=== PATIENT | female | born 1955 | race Caucasian/White ===

== ENCOUNTER 2019-06-20 12:43 | Inpatient (IN) | payer OTHER ==
[~2019-06-20] VITALS: Ht 167.6 cm; Wt 71.2 kg
--- NOTE | 2019-06-20 12:43 | NUR ---
PATIENT BIBA TO BED 6 AT THIS TIME.
--- NOTE | 2019-06-20 12:50 | NUR ---
PT [facility] FOR FURTHER EVALUATION OF ALOC, NAUSEA AND VOMITING. PT ALERT TO NAME AND EVENT AT THIS TIME; PER EMS THIS IS PT'S BASELINE. DIALYSIS T, TH, SAT. AV SHUNT TO LT ARM. ALLERGIES: AMLODIPINE, PENICILLINS MED HX: CVA, HTN, HDL, DM II, ESRD ON HD, OSTEOMYELITIS (LT ANKLE/FOOT), NEUROPATHY
[2019-06-20 12:51] VITALS: BP 178/53
--- NOTE | 2019-06-20 13:07 | NUR ---
Oxygen applied at 2 L per minute via NC. 02 saturation 98% by pulse oximetry.
--- NOTE | 2019-06-20 13:09 | NUR ---
INQUIRED WITH MD FOR POSSIBLE CT HEAD HX CVA, ESRD DIALYSIS, DM
[2019-06-20] MEDS ORDERED: VITA1TAB44 PO (13:18)
[2019-06-20] MEDS ORDERED: DOCU-300 PO (13:18)
[2019-06-20] MEDS ORDERED: ATOR40TA PO (13:18)
[2019-06-20] MEDS ORDERED: HEPA500056 (13:18)
[2019-06-20] MEDS ORDERED: LACT10SO1 PO (13:18)
[2019-06-20] MEDS ORDERED: SEVE800T6 PO (13:18)
[2019-06-20] MEDS ORDERED: BISA-213 RC (13:18)
[2019-06-20] MEDS ORDERED: ASPI-1718 PO (13:18)
[2019-06-20] MEDS ORDERED: CARV12.5 PO (13:18)
[2019-06-20] MEDS ORDERED: LOSA100T51 PO (13:18)
[2019-06-20] MEDS ORDERED: [UNRECOGNIZED DRUG - CODE] PO (13:18)
[2019-06-20] MEDS ORDERED: GABA100C PO (13:18)
[2019-06-20] MEDS ORDERED: SLIDE SUBQ (13:23)
[2019-06-20] MEDS ORDERED: INSU10SU2 SC (13:23)
--- NOTE | 2019-06-20 13:26 | NUR ---
CXR AT BEDSIDE
--- NOTE | 2019-06-20 13:26 | NUR ---
CT NOTIFIED OF PT
--- NOTE | 2019-06-20 13:48 | NUR ---
EKG BEING PERFORMED BY NAI SANCHEZ
[2019-06-20 14:06] LABS: BASOPHILS # (AUTO) 0.1 K/uL (0.00-0.22); HEMATOCRIT 30.7 % (36-48); HEMOGLOBIN 9.5 g/dL (12.0-16.0); NEUTROPHILS # (AUTO) 12.8 K/uL (1.8-7.7)
[2019-06-20 14:13] LABS: BASOPHILS % (AUTO) 0.5 % (0.0-2.0); EOSINOPHILS % (AUTO) 0.2 % (0.0-4.0); LYMPHOCYTES # (AUTO) 1.7 K/uL (2.5-16.5); LYMPHOCYTES % (AUTO) 10.7 % (20.5-51.1); MEAN CORPUSCULAR HEMOGLOBIN 25 pg (27-31); MEAN CORPUSCULAR HGB CONC 31 g/dL (33-37); MEAN CORPUSCULAR VOLUME 78.8 fL (80-94); MONOCYTES # (AUTO) 1.5 K/uL (0.8-1.0); MONOCYTES % (AUTO) 9.3 % (1.7-9.3); NEUTROPHILS % (AUTO) 79.3 % (42.2-75.2); PLATELET COUNT (AUTO) 384 K/uL (140-450); RED CELL DISTRIBUTION WIDTH 17.1 % (11.6-13.7); WHITE BLOOD COUNT (AUTO) 16.2 K/uL (4.8-10.8)
--- NOTE | 2019-06-20 14:15 | NUR ---
# 14 FR Urinary catheter inserted utilizing sterile technique. Immediate return of 10 ml of clear yellow urine noted. Urine sample collected. Pt tolerated procedure well.
[2019-06-20 14:22] LABS: ALBUMIN 2.8 g/dL (3.4-5.0); ANION GAP 6.3 (8-16); CARBON DIOXIDE 38.7 mmol/L (21-32); CREATININE 3.4 mg/dL (0.6-1.3); TOTAL BILIRUBIN 1.3 mg/dL (0.0-1.0)
--- NOTE | 2019-06-20 15:17 | NUR ---
pt taken to ct scan via rebekah
[2019-06-20] MEDS ORDERED: DOCUSATE SODIUM 100 MG GELCAP PO PRN (16:30)
[2019-06-20] MEDS ORDERED: ACETAMINOPHEN 325 MG TAB PO PRN (16:30)
[2019-06-20] MEDS ORDERED: HYDROcodone/APAP 5/325 MG 1 TAB TAB PO PRN (16:30)
--- NOTE | 2019-06-20 16:34 | NUR ---
Herlinda crowley in ED - 06/20/19 at 1634 by DENYS Patient resting comfortably in bed. Vital Signs within normal limits. Respirations even and unlabored.
--- NOTE | 2019-06-20 16:34 | NUR ---
Patient resting comfortably in bed. Vital Signs within normal limits. O2 sat 98% in 2L via NC.
[2019-06-20 17:24] LABS: MAGNESIUM 2.1 mg/dL (1.8-2.4); PHOSPHORUS 1.9 mg/dL (2.5-4.9); THYROID STIMULATING HORMONE 12.04 uIU/mL (0.34-3.74)
--- NOTE | 2019-06-20 17:30 | NUR ---
PT ARRIVED ON THE UNIT WITH 2 ER NURSES. PT IS ALERT AND ORIENTED. [place] [facility] [place]/C [place]OC, N/V, AND ABD PAIN IN RUQ. DENIES PAIN OR NAUSEA AT THIS TIME. HX OF CVA, R SIDED WEAKNESS, DM, HTN, NEUROPATHY,AND HYPERLIPIDEMIA. PT HAS A BIG TOE ON L FOOT AMPUTATED. HAS A DRESSING ON THE L FOOT. IT WAS REMOVED AND THE HEEL WAS BLACK, UNSTAGEABLE WOUND. PT ALSO HAS A WOUND ON R HAND. PER PT, IT WAS FROM AN IV INSERTION. TOOK PICTURES. MRSA DONE. GOT PT SETTLED INTO BED AND WILL ENDORSE PT TO THE SHODDY MILL WORKER NURSE FOR ADMISSION. V/S STABLE, ON 2 L NC. IV ON R FA 20G SL.
[2019-06-20] MEDS ORDERED: DEXTROSE 50% 50 ML SYR IVP PRN (17:35)
[2019-06-20 17:42] LABS: PROTHROMBIN TIME 11.1 secs (10.8-13.4)
--- NOTE | 2019-06-20 17:49 | NUR ---
APatient admitted to care of Dr. Medrano . Admited to telemetry floor room 105b. Belongings list completed. Report to INDRA Reyes. Pt in stable condition; transfer of care at this time.
--- NOTE | 2019-06-20 18:45 | NUR ---
C/O NAUSEA. GAVE PT A VOMIT BAG. WILL CHECK ORDERS.
[2019-06-20] MEDS: ONDANSETRON 4 MG/2 ML VIAL IM/IVP PRN (19:09)
[2019-06-20] MEDS: NACL 0.9% 1,000 ML IV SCH (19:09)
--- NOTE | 2019-06-20 19:23 | NUR ---
ENDORSED PT TO THE RN LVN NURSE AT BEDSIDE FOR CONTINUITY OF CARE. PT IS IN STABLE CONDITION.
--- NOTE | 2019-06-20 19:24 | NUR ---
RECEIVED BEDSIDE REPORT FROM DAY SHIFT NURSE ANDREW RN, PT STABLE, NO DISTRESS NOTED, IV TO R FA20G PATENT, INTACT, INFUSING WELL, PT ON 1LPM O2 VIA NC, NO SOB NOTED, INITIAL ASSESSMENT DONE, ALL SAFETY PRECAUTION MET, CALL LIGHT WITHIN REACH, WILL CONTINUE TO MONITOR.
[2019-06-20 20:00] VITALS: BP 147/43
--- NOTE | 2019-06-20 20:12 | NUR ---
TRIED TO OBTAIN CONSENT FROM PT FOR I&D OF THE FOOT WOUND WITH DR. LORENZO AT BEDSIDE, PT WAS ABLE TO ANSWER QUESTIONS AND UNDERSTAND PROCEDURE, BUT WHEN ASKED REGARDING THE CONSENT, PT STATED THAT HIS SON IS THE ONE THAT SIGNS CONSENT. WILL TRY TO CONTACT SON AGAIN REGARDING CONSENT, PT RESTING, NO DISTRESS NOTED, CALL LIGHT WITHIN REACH.
[2019-06-20] MEDS ORDERED: INSULIN LANTUS 100 UNITS/ML 10 ML VIAL SUBQ SCH (21:00)
[2019-06-20] MEDS: GABAPENTIN 100 MG CAP PO SCH (21:09)
[2019-06-20] MEDS: BISACODYL 10 MG SUPP RC SCH (21:09)
[2019-06-20] MEDS: DOCUSATE SODIUM 100 MG GELCAP PO SCH (21:09)
[2019-06-20] MEDS: ATORVASTATIN 20 MG TAB PO SCH (21:09)
[2019-06-20] MEDS: CARVEDILOL 12.5 MG TAB PO SCH (21:09)
[2019-06-20] MEDS: BLOOD GLUCOSE MONITORING 1 DEV DEV FS SCH (21:22)
[2019-06-21] VITALS: BP 137/31
--- NOTE | 2019-06-21 00:14 | NUR ---
CHECKED ON PT, PT SLEEPING, NO DISTRESS NOTED, ATTEMPT TO STRAIGHT CATH PT FOR URINALYSIS, PT TOO DROWSY, WAS UNABLE TO COMPREHEND PROCEDURE, WILL TRY AGAIN WHEN PT IS MORE AWAKE.
[2019-06-21 04:00] VITALS: BP 148/48
--- NOTE | 2019-06-21 04:00 | NUR ---
CHECKED ON PT, V/S TAKEN, WITHIN PT BASELINE, STRAIT CATH PERFORMED, PT TOLERATED WELL, OBTAINED URINE AND SENT TO LAB, PT RESTING, NO DISTRESS NOTED, CALL LIGHT WITHIN REACH, WILL CONTINUE TO MONITOR.
[2019-06-21] MEDS: BLOOD GLUCOSE MONITORING 1 DEV DEV FS SCH ×4 (06:02→20:21)
--- NOTE | 2019-06-21 06:05 | NUR ---
CHECKED PT BLOOD SUGAR, 81, PT SLEEPING, NO DISTRESS NOTED, CALL LIGHT WITHIN REACH, WILL CONTINUE TO MONITOR.
[2019-06-21] MEDS: PANTOPRAZOLE 40 MG TABEC PO SCH (06:37)
--- NOTE | 2019-06-21 06:37 | NUR ---
ATTEMPTED TO ADMINISTER MEDICATION PROTONIX TO PT, PT WOULD NOT WAKE UP, PT REACTED TO NAME BUT DOESN'T WANT TO OPEN HER EYES AND MOUTH. PT RESTING, NO DISTRESS NOTED, CALL LIGHT WITHIN REACH, WILL CONTINUE TO MONITOR. Addendum: 06/21/19 at 0639 by Racheal Ozuna RN DR HOPKINS NOTIFIED, STATED UNDERSTANDING.
--- NOTE | 2019-06-21 07:23 | NUR ---
ENDORSED PT TO DAY SHIFT NURSE LOUISA RN, PT STABLE, NO DISTRESS NOTED, CALL LIGHT WITHIN REACH.
--- NOTE | 2019-06-21 07:24 | NUR ---
RECEIVED REPORT FROM CLASSIFICATION CASE MANAGER NURSE. PATIENT LYING DOWN IN BED SLEEPING, AROUSABLE BY VOICE. NO DISTRESS NOTED. DENIES ANY PAIN. AAOX3, CALM, COOPERATIVE, SKIN COLOR APPROPRIATE TO ETHNICITY, WARM TO TOUCH. HAS LEFT GREAT TO AMPUTATION, AND LEFT HEEL WOUND, LOOKS BLACK. LEFT UPPER ARM AV SHUNT NOTED, PATENT. IV SITE INTACT, PATENT, AND INFUSING IVF PER MD ORDERS. HAS RIGHT SIDED WEAKNESS. RESPIRATIONS EVEN, UNLABORED, ON O2 1L/MIN VIA NC. REVIEWED PLAN OF CARE WITH PATIENT. PATIENT VERBALIZED UNDERSTANDING. SAFETY MEASURES IN PLACE, CALL LIGHT WITHIN REACH. WILL CONTINUE TO MONITOR.
[2019-06-21 08:00] VITALS: BP 155/44
[2019-06-21 08:06] LABS: APPEARANCE,URINE CLEAR (CLEAR); BILIRUBIN,URINE NEGATIVE (NEGATIVE); BLOOD, URINE NEGATIVE (NEGATIVE); COLOR,URINE YELLOW (YELLOW); LEUKOCYTE ESTERASE ,URINE NEGATIVE (NEGATIVE); NITRITE, URINE NEGATIVE (NEGATIVE); PH,URINE >=9.0 (5.0-9.0); UGLUCOSE NEGATIVE (NEGATIVE)
--- NOTE | 2019-06-21 08:15 | NUR ---
PATIENT HAS BEEN SCREENED AND CATEGORIZED MODERATE NUTRITION RISK. PATIENT WILL BE SEEN WITHIN 3-5 DAYS OF ADMISSION. 06/23/19-06/25/[address]
[2019-06-21 08:25] LABS: RBC,URINE 0-5 /HPF (0-5)
[2019-06-21] MEDS: BISACODYL 10 MG SUPP RC SCH ×2 (09:00→21:00)
[2019-06-21] MEDS: CARVEDILOL 12.5 MG TAB PO SCH ×3 (09:00→21:44)
[2019-06-21] MEDS: LOSARTAN 50 MG TAB PO SCH ×2 (09:00→15:37)
[2019-06-21] MEDS: VIT-B COMP/VIT-C/FOLIC ACID 1 TAB PO SCH (09:29)
[2019-06-21] MEDS: ASPIRIN 81 MG TAB.CHEW PO SCH (09:29)
[2019-06-21] MEDS: DOCUSATE SODIUM 100 MG GELCAP PO SCH ×2 (09:30→21:43)
[2019-06-21] MEDS: SEVELAMER CARBONATE 800 MG TAB PO SCH ×3 (09:30→16:46)
--- NOTE | 2019-06-21 09:47 | NUR ---
ASSISTED PRODUCE INSPECTOR IN CLEANING PATIENT. SCHEDULED MEDICATIONS DUE GIVEN. WILL CONTINUE TO MONITOR. BP MEDS NOT GIVEN DUE TO SCHEDULED HEMODIALYSIS TODAY.
[2019-06-21 11:36] LABS: BASOPHILS # (AUTO) 0.1 K/uL (0.00-0.22); BASOPHILS % (AUTO) 0.8 % (0.0-2.0); EOSINOPHILS # (AUTO) 0.2 K/uL (0-0.4); EOSINOPHILS % (AUTO) 1.3 % (0.0-4.0); HEMATOCRIT 29.4 % (36-48); LYMPHOCYTES # (AUTO) 1.6 K/uL (2.5-16.5); LYMPHOCYTES % (AUTO) 14.5 % (20.5-51.1); MEAN CORPUSCULAR HEMOGLOBIN 25 pg (27-31); MEAN CORPUSCULAR HGB CONC 31 g/dL (33-37); MEAN CORPUSCULAR VOLUME 79.7 fL (80-94); MONOCYTES % (AUTO) 9.2 % (1.7-9.3); NEUTROPHILS # (AUTO) 8.3 K/uL (1.8-7.7); NEUTROPHILS % (AUTO) 74.2 % (42.2-75.2); PLATELET COUNT (AUTO) 348 K/uL (140-450); RED BLOOD CELL COUNT(AUTO) 3.69 MIL/uL (4.20-5.40); WHITE BLOOD COUNT (AUTO) 11.2 K/uL (4.8-10.8)
[2019-06-21 12:00] VITALS: BP 150/48
[2019-06-21 12:11] LABS: ANION GAP 8.6 (8-16); CARBON DIOXIDE 37.1 mmol/L (21-32); POTASSIUM 4.7 mmol/L (3.5-5.1)
[2019-06-21 12:15] LABS: CHOL/HDL RATIO 1.8 (1-4.5); MAGNESIUM 2.2 mg/dL (1.8-2.4); PHOSPHORUS 3.9 mg/dL (2.5-4.9)
--- NOTE | 2019-06-21 12:32 | NUR ---
PATIENT SITTING IN BED WITH LUNCH TRAY IN FRONT. NO DISTRESS NOTED. DENIES ANY PAIN. WILL CONTINUE TO MONITOR.
[2019-06-21] MEDS: GAUZE TP SCH (12:50)
[2019-06-21 12:57] LABS: CREATININE 4.5 mg/dL (0.6-1.3)
--- NOTE | 2019-06-21 13:06 | NUR ---
PATIENT SITTING IN BED WATCHING TV. NO DISTRESS NOTED. CONDITION UNCHANGED. SCHEDULED MEDICATIONS DUE GIVEN. WILL CONTINUE TO MONITOR.
--- NOTE | 2019-06-21 14:50 | NUR ---
HD NURSE AT BEDSIDE STARTING HEMODIALYSIS WILL CONTINUE TO MONITOR.
--- NOTE | 2019-06-21 15:41 | NUR ---
HD IN PROGRESS, PATIENT BP HIGH AT 188/69, 68 PULSE. PER PATIENT, HER BP SOMETIMES IS HIGH DURING HD AND REQUIRES HER MORNING BP MEDICATIONS THAT WERE HELD. NOTIFIED MD. PER MD, GIVE HER MORNING BP MEDICATIONS. CARVEDILOL AND LISINOPRIL SCHEDULED AT 0900 GIVEN AT THIS TIME PER MD ORDERS. WILL CONTINUE TO MONITOR.
[2019-06-21 16:00] VITALS: BP 188/69
[2019-06-21] MEDS: NACL 0.9% 1,000 ML IV SCH (16:29)
[2019-06-21] MEDS: INSULIN LISPRO SLIDING SCALE 100 UNITS/ML VIAL SUBQ PRN (16:45)
--- NOTE | 2019-06-21 17:03 | NUR ---
HD STILL IN PROGRESS. SCHEDULED MEDICATIONS DUE GIVEN. WILL CONTINUE TO MONITOR.
[2019-06-21] MEDS ORDERED: ENALAPRILAT 2.5 MG/2 ML VIAL IVP SCH (18:30)
--- NOTE | 2019-06-21 18:41 | NUR ---
HD COMPLETED. BP AT 179/60, [address] CA[address]ILL[address]. CASTILLO ORDERED VASOTEC IVP. ADMINISTERED AT THIS TIME PER MD ORDERS.
--- NOTE | 2019-06-21 19:05 | NUR ---
GAVE REPORT TO CHARGEMASTER SPECIALIST NURSE FOR CONTINUITY OF CARE. PATIENT IN STABLE CONDITION.
--- NOTE | 2019-06-21 19:29 | NUR ---
RECEIVED REPORT FROM DAY RN. PATIENT NC O2 1L. PT IS AAO X3 WITH DELAYED SPEECH. NO DISTRESS NOTED. DENIES ANY PAIN. CALM, COOPERATIVE, SKIN COLOR APPROPRIATE TO ETHNICITY, WARM TO TOUCH. HAS LEFT GREAT TO AMPUTATION, AND LEFT HEEL WOUND, DRESSING C/D/I. LEFT UPPER ARM AV SHUNT NOTED, PATENT. HD TODAY 2L OUTPUT. IV SITE ON R FA INTACT, PATENT, AND INFUSING IVF PER MD ORDERS. HAS RIGHT SIDED WEAKNESS. REVIEWED PLAN OF CARE WITH PATIENT. PATIENT VERBALIZED UNDERSTANDING. SAFETY MEASURES IN PLACE, CALL LIGHT WITHIN REACH. WILL CONTINUE TO MONITOR.
--- NOTE | 2019-06-21 21:42 | NUR ---
TAYLER MEDICATIONS GIVEN WITH APPLE SAUCE. PT REFUSED SUPPOSITORY SAID SHE HAD A BM TODAY AND ONLY WANTS COLACE. PT ALSO REFUSED HEPARIN EDUCATED PT ON BENEFITS AND RISK OF NOT TAKING PT VERBALIZED UNDERSTANDING. SAFETY MEASURES ARE IN PLACE. WILL CONTINUE TO MONITOR.
[2019-06-21] MEDS: GABAPENTIN 100 MG CAP PO SCH (21:43)
[2019-06-21] MEDS: ATORVASTATIN 20 MG TAB PO SCH (21:44)
--- NOTE | 2019-06-21 22:30 | NUR ---
PT VOMITED X1 PT WAS TURNED, CLEANED AND CHANGED ALL FALLS PRECAUTIONS IN PLACE.
--- NOTE | 2019-06-21 22:30 | NUR ---
PT IS SLEEPING COMFORTABLY IN BED. RESPIRATIONS ARE EQUAL AND UNLABORED. CALL LIGHT IS WITHIN REACH.
[2019-06-22] VITALS: BP 145/46
--- NOTE | 2019-06-22 | NUR ---
VITAL SIGNS ARE WITHIN NORMAL LIMITS. ALL NEEDS MET AT THIS TIME. WILL CONTINUE TO MONITOR.
--- NOTE | 2019-06-22 02:15 | NUR ---
PATIENT IS SLEEPING COMFORTABLY IN BED. CHEST RISE AND FALL. CALL LIGHT IS WITHIN REACH.
--- NOTE | 2019-06-22 05:00 | NUR ---
PT SLEEPING RESPIRATIONS ARE EQUAL AND UNLABORED. CALL LIGHT IS WITHIN REACH. WILL CONTINUE TO MONITOR.
--- NOTE | 2019-06-22 06:00 | NUR ---
BLOOD SUGAR IS 139 NO COVERAGE NEEDED. ALL SAFETY MEASURES ARE IN PLACE. CALL LIGHT IS WITHIN REACH. WILL CONTINUE TO MONITOR.
[2019-06-22] MEDS: BLOOD GLUCOSE MONITORING 1 DEV DEV FS SCH ×4 (06:01→20:22)
[2019-06-22] MEDS: PANTOPRAZOLE 40 MG TABEC PO SCH (06:31)
[2019-06-22 06:52] LABS: BASOPHILS # (AUTO) 0.1 K/uL (0.00-0.22); BASOPHILS % (AUTO) 0.5 % (0.0-2.0); EOSINOPHILS # (AUTO) 0.1 K/uL (0-0.4); EOSINOPHILS % (AUTO) 0.7 % (0.0-4.0); HEMATOCRIT 28.5 % (36-48); HEMOGLOBIN 8.7 g/dL (12.0-16.0); LYMPHOCYTES # (AUTO) 1.8 K/uL (2.5-16.5); MEAN CORPUSCULAR HEMOGLOBIN 24 pg (27-31); MEAN CORPUSCULAR HGB CONC 30 g/dL (33-37); MONOCYTES # (AUTO) 1.1 K/uL (0.8-1.0); MONOCYTES % (AUTO) 8.3 % (1.7-9.3); NEUTROPHILS # (AUTO) 9.8 K/uL (1.8-7.7); PLATELET COUNT (AUTO) 319 K/uL (140-450); RED BLOOD CELL COUNT(AUTO) 3.56 MIL/uL (4.20-5.40); RED CELL DISTRIBUTION WIDTH 16.9 % (11.6-13.7); WHITE BLOOD COUNT (AUTO) 12.8 K/uL (4.8-10.8)
--- NOTE | 2019-06-22 07:19 | NUR ---
GAVE BEDSIDE REPORT TO DAY RN. PT ENDORSED IN STABLE CONDITION.
--- NOTE | 2019-06-22 07:20 | NUR ---
RECEIVED REPORT FROM MARINE ENGINEERING PROFESSOR RN AT BEDSIDE FOR CONTINUITY OF CARE. PATIENT ON ROOM AIR, SLEEPING COMFORTABLY, AROUSABLE BUT REFUSING CARE. PT IS AAO X3 WITH DELAYED SPEECH. NO DISTRESS NOTED. DENIES ANY PAIN. SKIN COLOR APPROPRIATE TO ETHNICITY, WARM TO TOUCH. HAS LEFT GREAT TO AMPUTATION, AND LEFT HEEL WOUND, DRESSING C/D/I. LEFT UPPER ARM AV SHUNT NOTED, PATENT. IV SITE ON R FA INTACT, PATENT, AND INFUSING IVF PER MD ORDERS. HAS RIGHT SIDED WEAKNESS. UPDATED BOARD. SAFETY MEASURES IN PLACE, CALL LIGHT WITHIN REACH. BED IN LOWEST POSITION WITH ALARM ON. WILL CONTINUE TO MONITOR.
[2019-06-22 07:53] LABS: CARBON DIOXIDE 27.6 mmol/L (21-32); CREATININE 3.2 mg/dL (0.6-1.3); POTASSIUM 4.6 mmol/L (3.5-5.1)
[2019-06-22 07:58] LABS: MAGNESIUM 1.7 mg/dL (1.8-2.4); PHOSPHORUS 2.8 mg/dL (2.5-4.9)
[2019-06-22 08:00] VITALS: BP 152/94
[2019-06-22 08:00] LABS: LYMPHOCYTES % (AUTO) 13.8 % (20.5-51.1); NEUTROPHILS % (AUTO) 76.7 % (42.2-75.2)
[2019-06-22] MEDS: BISACODYL 10 MG SUPP RC SCH ×2 (09:00→20:28)
[2019-06-22] MEDS: SEVELAMER CARBONATE 800 MG TAB PO SCH ×3 (09:35→17:00)
[2019-06-22] MEDS: ASPIRIN 81 MG TAB.CHEW PO SCH (09:35)
[2019-06-22] MEDS: DOCUSATE SODIUM 100 MG GELCAP PO SCH ×2 (09:35→20:30)
[2019-06-22] MEDS: VIT-B COMP/VIT-C/FOLIC ACID 1 TAB PO SCH (09:36)
[2019-06-22] MEDS: LOSARTAN 50 MG TAB PO SCH (09:36)
[2019-06-22] MEDS: MAGNESIUM OXIDE 400 MG TAB PO SCH (09:36)
[2019-06-22] MEDS: CARVEDILOL 12.5 MG TAB PO SCH ×2 (09:36→20:31)
--- NOTE | 2019-06-22 09:37 | NUR ---
ORDERED MEDICATIONS GIVEN WITH APPLESAUCE. PATIENT TOLERATED THEM. PATIENT STILL DROWSY BUT COOPERATIVE. SAFETY PRECAUTIONS IN PLACE, BED ALARM ON, CALL LIGHT WITHIN REACH, WILL CONTINUE TO MONITOR PATIENT.
--- NOTE | 2019-06-22 11:59 | NUR ---
BLOOD SUGAR 147, NO COVERAGE NEEDED. PATIENT TIRED BUT COOPERATIVE. NO COMPLAINTS AT THIS TIME. SAFETY PRECAUTIONS IN PLACE, BED ALARM ON, CALL LIGHT WITHIN REACH, WILL CONTINUE TO MONITOR PATIENT.
[2019-06-22 12:00] VITALS: BP 157/56
--- NOTE | 2019-06-22 12:29 | NUR ---
INFORMED DR HOPKINS ABOUT PATIENT'S DROWSINESS AND BLOOD PRESSURE TRENDS. DR HOPKINS AWARE. PATIENT CURRENTLY RESTING IN BED, NO COMPLAINTS AT THIS TIME. WILL CONTINUE TO MONITOR PATIENT.
[2019-06-22] MEDS: GAUZE TP SCH (13:11)
--- NOTE | 2019-06-22 15:10 | NUR ---
PATIENT RESTING IN BED WITH EYES CLOSED, FLACC-0. RESPIRATIONS EVEN AND UNLABORED ON ROOM AIR. ALL NEEDS MET. SAFETY PRECAUTIONS IN PLACE, BED ALARM ON, CALL LIGHT WITHIN REACH, WILL CONTINUE TO MONITOR PATIENT.
[2019-06-22] MEDS: NACL 0.9% 1,000 ML IV SCH (15:46)
[2019-06-22 16:00] VITALS: BP 152/41
--- NOTE | 2019-06-22 17:15 | NUR ---
PATIENT ATTEMPTED TO GET OUT OF BED. DEMANDED TO GO HOME. INFORMED PATIENT SHE IS IN THE HOSPITAL BECAUSE SHE IS SICK. SHE STATED THAT SHE IS NOT SICK, AND WANT TO GO TO HOSPITAL THAT SHE WANTS TO GO TO. PATIENT ALSO COMPLAINED ABOUT HOW HER FAMILY DOES NOT KNOW WHERE SHE IS. GOT THE PHONE FOR PATIENT TO CALL HER FAMILY, SHE REFUSED IT. DR HOPKINS AWARE ABOUT PATIENT'S CONFUSION. NO NEW ORDERS AT THIS TIME.
[2019-06-22] MEDS: INSULIN LISPRO SLIDING SCALE 100 UNITS/ML VIAL SUBQ PRN (17:22)
--- NOTE | 2019-06-22 17:25 | NUR ---
BLOOD SUGAR 160, COVERAGE GIVEN. PATIENT TOLERATED IT. PATIENT STILL COMPLAINING ABOUT GOING HOME. SAFETY PRECAUTIONS IN PLACE, BED ALARM ON, CALL LIGHT WITHIN REACH, WILL CONTINUE TO MONITOR PATIENT.
--- NOTE | 2019-06-22 18:10 | NUR ---
PATIENT BEING FED DINNER. PATIENT COOPERATIVE. NO COMPLAINTS AT THIS TIME. SAFETY PRECAUTIONS IN PLACE, BED ALARM ON, CALL LIGHT WITHIN REACH, WILL CONTINUE TO MONITOR PATIENT AND ENDORSE TO OUTSIDE SALES EXECUTIVE RN.
[2019-06-22] MEDS: ONDANSETRON 4 MG/2 ML VIAL IM/IVP PRN ×2 (18:49→20:48)
--- NOTE | 2019-06-22 18:52 | NUR ---
PT C/O NAUSEA AND WANTING TO VOMIT. PRN ZOFRAN GIVEN. PATIENT STILL COMPLAINING ABOUT NOT ABLE TO SPEAK TO SON. GAVE PATIENT PHONE. WILL CONTINUE TO MONITOR.
--- NOTE | 2019-06-22 19:17 | NUR ---
REPORT GIVEN TO DAYCARE PROVIDER NURSE AT BEDSIDE FOR CONTINUITY OF CARE. PATIENT IN STABLE CONDITION.
--- NOTE | 2019-06-22 19:30 | NUR ---
REPORT RECEIVED AT BEDSIDE FROM DEIDRA RN DAYSHIFT NURSE FOR CONTINUITY OF CARE, PT IN STABLE CONDITION.
[2019-06-22 20:00] VITALS: BP 121/55
[2019-06-22] MEDS: hydrALAZINE 25 MG TAB PO SCH (20:30)
[2019-06-22] MEDS: ATORVASTATIN 20 MG TAB PO SCH (20:32)
[2019-06-22] MEDS: GABAPENTIN 100 MG CAP PO SCH (20:32)
--- NOTE | 2019-06-22 20:55 | NUR ---
PT IN BED AOX4. PT DRESSING ON RIGHT HEEL DRY AND INTACT. PT HAS NO C/O OF PAIN , BUT DID C/O OF NAUSEA. PT GIVEN IVP /PRN ZOFRAN. PT ALSO GIVEN ALL SCHEDULED MEDS AT THIS TIME. PT REQUESTED AND RECEIVED ASSISTANCE IN PHONING HER SON. V/S FOLLOW T 98.0 P 68 R 18 B/P 121/55 02 945 ON ROOM AIR. ALL REQUESTED NEEDS ATTENDED MEDICATION EDUCATION PROVIDED WELL. WILL CONTINUE TO MONITOR FOR EFFECT OF MEDICATION WELL SAFETY AND COMFORT ALL FALLS PRECAUTIONS IN PLACE AND CALL LEONARDO IN REACH.
[2019-06-23] VITALS: BP 123/33
--- NOTE | 2019-06-23 00:40 | NUR ---
PT IN BED RESTING V/S FOLLOWS T 98.5 P 71 R 18 B/P 123/33 02 100% ON ROOM AIR.
--- NOTE | 2019-06-23 01:13 | NUR ---
RECEIVED CRITICAL LAB RESULTS THAT PT IS POSITIVE FOR MRSA OF THE NARES. MD AND CHARGE MADE AWARE. PRECAUTINS IN PLACE.
[2019-06-23] MEDS: ONDANSETRON 4 MG/2 ML VIAL IM/IVP PRN (02:26)
--- NOTE | 2019-06-23 02:39 | NUR ---
NEW ORDERS FOR CHLORHEXIDINE WIPES AND BACTROBAN OINTMENT. PT PLACED ON CONTACT PRECAUTIONS. PT IN BED RESTING BUT NOTED WITH DRY HEAVES. PT GIVEN ZOFRAN IVP PRN FOR NAUSEA WILL MONITOR FOR EFFECT.
[2019-06-23] MEDS: INSULIN LISPRO SLIDING SCALE 100 UNITS/ML VIAL SUBQ PRN ×3 (05:57→21:48)
[2019-06-23] MEDS: BLOOD GLUCOSE MONITORING 1 DEV DEV FS SCH ×4 (05:58→21:13)
[2019-06-23] MEDS: MUPIROCIN CA NASAL 2% 1GM TUBE NS SCH (06:07)
[2019-06-23] MEDS: PANTOPRAZOLE 40 MG TABEC PO SCH (06:08)
[2019-06-23] MEDS: CHLORHEXADINE GLUC 2% CLOTH TP SCH (06:09)
[2019-06-23 07:04] LABS: CARBON DIOXIDE 29.9 mmol/L (21-32); POTASSIUM 4.9 mmol/L (3.5-5.1)
--- NOTE | 2019-06-23 07:25 | NUR ---
RECEIVED REPORT FROM DATABASE DEVELOPER RNHODA. PATIENT IS SLEEPING IN BED, VISIBLE CHEST RISE AND NO SIGNS OF DISTRESS ON RA, CALL LIGHT IS WITHIN REACH, BED ALARM IS ON, PATIENT IS CHACE FALL RISK PRECAUTIONS. PATIENT AWAKES EASILY TO VOICE. NO C/O PAIN AT THIS TIME. PATIENT RETURNED TO SLEEP.
[2019-06-23 07:27] LABS: BASOPHILS % (AUTO) 0.4 % (0.0-2.0); EOSINOPHILS % (AUTO) 0.4 % (0.0-4.0); HEMATOCRIT 26.5 % (36-48); HEMOGLOBIN 8.2 g/dL (12.0-16.0); LYMPHOCYTES % (AUTO) 15.8 % (20.5-51.1); MEAN CORPUSCULAR HEMOGLOBIN 24 pg (27-31); MEAN CORPUSCULAR HGB CONC 31 g/dL (33-37); MEAN CORPUSCULAR VOLUME 77.6 fL (80-94); MONOCYTES # (AUTO) 1.1 K/uL (0.8-1.0); MONOCYTES % (AUTO) 8.7 % (1.7-9.3); NEUTROPHILS # (AUTO) 9.3 K/uL (1.8-7.7); NEUTROPHILS % (AUTO) 74.7 % (42.2-75.2); PLATELET COUNT (AUTO) 321 K/uL (140-450); RED BLOOD CELL COUNT(AUTO) 3.41 MIL/uL (4.20-5.40); WHITE BLOOD COUNT (AUTO) 12.5 K/uL (4.8-10.8)
[2019-06-23 07:54] LABS: CREATININE 4.5 mg/dL (0.6-1.3)
[2019-06-23 08:00] VITALS: BP 133/45
[2019-06-23] MEDS: SEVELAMER CARBONATE 800 MG TAB PO SCH ×3 (08:44→18:01)
[2019-06-23] MEDS: ASPIRIN 81 MG TAB.CHEW PO SCH (08:45)
[2019-06-23] MEDS: DOCUSATE SODIUM 100 MG GELCAP PO SCH ×2 (08:45→21:11)
[2019-06-23] MEDS: hydrALAZINE 25 MG TAB PO SCH ×2 (08:45→21:13)
[2019-06-23] MEDS: CARVEDILOL 12.5 MG TAB PO SCH ×2 (08:46→21:10)
[2019-06-23] MEDS: VIT-B COMP/VIT-C/FOLIC ACID 1 TAB PO SCH (08:46)
[2019-06-23] MEDS: MAGNESIUM OXIDE 400 MG TAB PO SCH (08:46)
[2019-06-23] MEDS: LOSARTAN 50 MG TAB PO SCH (08:46)
--- NOTE | 2019-06-23 09:07 | NUR ---
ADMINISTERED SCHEDULED MEDICATIONS. PATIENT REQUESTED HEPARIN AND DULCOLAX SUPPOSITORY BE GIVEN AFTER SHE FINISHES BREAKFAST. WILL RETURN TO ADMINISTER THOSE MEDICATIONS. PATIENT SITTING UPRIGHT, EATING BREAKFAST, NO SIGNS OF DISTRESS ON RA. ABLE TO SELF FEED WITH LEFT HAND. WELL AWARE OF HER DEFICITS RELATED TO PRIOR CVA. SAFETY PRECAUTIONS IN PLACE.
[2019-06-23] MEDS: NACL 0.9% 1,000 ML IV SCH (09:09)
[2019-06-23] MEDS: BISACODYL 10 MG SUPP RC SCH ×2 (10:23→21:12)
--- NOTE | 2019-06-23 10:25 | NUR ---
ADMINISTERED HEPARIN SUBCUTANEOUS AND DUCOLAX SUPPOSITORY. PATIENT TOLERATED WELL. PATIENT SHOWING NO SIGNS OF DISTRESS ON RA. SAFETY PRECAUTIONS IN PLACE. WILL CONTINUE TO MONITOR.
--- NOTE | 2019-06-23 12:54 | NUR ---
ADMINISTERED 4 UNITS OF HUMALOG FOR GLUCOSE OF 203, PATIENT TOLERATED WELL. SET UP TRAY FOR LEFT HANDED ORIENTATION. PATIENT SELF FEEDING WELL. SAFETY PRECAUTIONS IN PLACE. CALL LIGHT IN REACH.
--- NOTE | 2019-06-23 15:40 | NUR ---
SPOKE TO PATIENT'S SON RASHAAD, HE AND PATIENT ARE CONCERNED THAT THE [facility] THAT MOTHER RESIDES AT ARE NOT PROPERLY MEDICATING HER FOR HER HTN. ACCORDING TO THEM THE PATIENTS BP IS OFTEN ABOVE 170 SYSTOLIC. REFERRED SON TO CASE MANAGEMENT TO FOLLOW UP ABOUT POTENTIALLY GETTING THE MEDICAL RECORD FOR COMPARISON TO CARE AT [facility].
[2019-06-23 16:00] VITALS: BP 117/54
--- NOTE | 2019-06-23 16:25 | NUR ---
Pulmonologist Intensivist Note: Per patient, she would like to return to [facility] upon discharge. 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
--- NOTE | 2019-06-23 16:45 | NUR ---
FACILITATED PATIENT CALL TO SON FROM PATIENTS ROOM PHONE. GLUCOSE 146 NO COVERAGE NEEDED. VITALS STABLE. SAFETY PRECAUTIONS IN PLACE. WILL CONTINUE TO MONITOR.
[2019-06-23] MEDS: GAUZE TP SCH (17:31)
--- NOTE | 2019-06-23 18:29 | NUR ---
PATIENT SITTING UP IN BED EATING DINNER, NO SIGNS OF DISTRESS ON RA, SAFETY PRECAUTIONS IN PLACE. WILL ENDORSE TO CLEAN RICE BROKER FOR CONTINUITY OF CARE.
--- NOTE | 2019-06-23 19:40 | NUR ---
ENDORSED PATIENT TO PREVENTATIVE MAINTENANCE TECHNICIAN RN IN STABLE CONDITION.
--- NOTE | 2019-06-23 19:40 | NUR ---
RECIEVED PT AWAKABLE -SLEEPY , CAN EXPRESS NEEDS , NID , ORIENTED TO HER NAME BUT NOT IN PLACE TIME AND DATE , NID ON SALINE LOCK INTACT AND PATENT , WITH AV FISTULA ON THE LEFT ARM , ON FALL RISK PRECAUTION PROTOCOL , CALL LIGHT WITHIN REACH , POC DISCUSSED AND VERBALIZE UNDERSTANDING, WILL CONT. TO MONITOR.
[2019-06-23] MEDS: ATORVASTATIN 20 MG TAB PO SCH (21:11)
[2019-06-23] MEDS: GABAPENTIN 100 MG CAP PO SCH (21:11)
--- NOTE | 2019-06-23 23:19 | NUR ---
RECEIVED BEDSIDE REPORT FROM JORY FOR CONTINUITY OF CARE. PATIENT SLEEPING AROUSABLE BY NAME AND TOUCH. RESPIRATION EVEN UNLABORED ON ROOM AIR. NO DISTRESS NOTED. SKIN IS WARM AND DRY. IV PATENT, INTACT, AND SALINE LOCK. ALL SAFETY MEASURES IN PLACE. PLAN OF CARE WAS UPDATE. CALL LIGHT WITHIN REACH. WILL CONTINUE TO MONITOR.
--- NOTE | 2019-06-23 23:19 | NUR ---
ENDORSED TO INDRA SALMON FOR CONTINUITY OF CARE .PT IS IN STABLE CONDITION.
[2019-06-24] VITALS: BP 151/66
--- NOTE | 2019-06-24 | NUR ---
VITALS WERE TAKEN. PATIENT IN STABLE CONDITION. NO DISTRESS NOTED. CALL LIGHT WITHIN REACH. WILL CONTINUE TO MONITOR.
[2019-06-24] MEDS: CHLORHEXADINE GLUC 2% CLOTH TP SCH (00:56)
[2019-06-24] MEDS: MUPIROCIN CA NASAL 2% 1GM TUBE NS SCH (00:56)
--- NOTE | 2019-06-24 01:00 | NUR ---
ALL TREATMENTS DONE PATIENT TOLERATED IT WELL.
--- NOTE | 2019-06-24 04:00 | NUR ---
CHECKED PATIENT. PATIENT SLEEPING RESPIRATION EVEN UNLABORED ON ROOM AIR. NO DISTRESS NOTED. CALL LIGHT WITHIN REACH. WILL CONTINUE TO MONITOR.
[2019-06-24] MEDS: PANTOPRAZOLE 40 MG TABEC PO SCH (06:18)
[2019-06-24] MEDS: INSULIN LISPRO SLIDING SCALE 100 UNITS/ML VIAL SUBQ PRN ×2 (06:19→17:29)
[2019-06-24] MEDS: BLOOD GLUCOSE MONITORING 1 DEV DEV FS SCH ×3 (06:23→17:28)
--- NOTE | 2019-06-24 06:26 | NUR ---
CHECKED PATIENT BLOOD GLUCOSE. PATIENT BLOOD GLUCOSE 154. ADMINISTERED 2 UNITS OF INSULIN PER ORDER. WILL CONTINUE TO MONITOR.
[2019-06-24 07:09] LABS: BASOPHILS % (AUTO) 0.2 % (0.0-2.0); EOSINOPHILS # (AUTO) 0.1 K/uL (0-0.4); EOSINOPHILS % (AUTO) 0.8 % (0.0-4.0); HEMATOCRIT 24.4 % (36-48); HEMOGLOBIN 7.5 g/dL (12.0-16.0); LYMPHOCYTES # (AUTO) 1.9 K/uL (2.5-16.5); LYMPHOCYTES % (AUTO) 16.7 % (20.5-51.1); MEAN CORPUSCULAR HEMOGLOBIN 24 pg (27-31); MEAN CORPUSCULAR HGB CONC 31 g/dL (33-37); MEAN CORPUSCULAR VOLUME 78.1 fL (80-94); MONOCYTES % (AUTO) 8.5 % (1.7-9.3); NEUTROPHILS # (AUTO) 8.6 K/uL (1.8-7.7); NEUTROPHILS % (AUTO) 73.8 % (42.2-75.2); PLATELET COUNT (AUTO) 287 K/uL (140-450); RED BLOOD CELL COUNT(AUTO) 3.12 MIL/uL (4.20-5.40); RED CELL DISTRIBUTION WIDTH 16.9 % (11.6-13.7); WHITE BLOOD COUNT (AUTO) 11.7 K/uL (4.8-10.8)
--- NOTE | 2019-06-24 07:19 | NUR ---
ENDORSED PATIENT TO DAY SHIFT NURSE. PATIENT IN STABLE CONDITION.
--- NOTE | 2019-06-24 07:20 | NUR ---
RECEIVED BEDSIDE REPORT FROM PROJECT RESERVOIR ENGINEER NURSE. PATIENT IS AWAKE, ALERT AND ORIENTED X2. NO SIGNS OF DISTRESS ON RA. SKIN HAS L TOE AMPUTATION, L HEEL HEALING WOUND, DRESSING IS CLEAN, DRY AND INTACT. R FA 22G SL. CLEAN, DRY AND INTACT. PATIENT IS BEDBOUND. INCONTINENT. WILL CONTINUE TO MONITOR THE PATIENT. BED IN LOW POSITION. CONTACT PRECAUTIONS FOR MRSA NARES.
[2019-06-24 07:26] LABS: MAGNESIUM 2.1 mg/dL (1.8-2.4); PHOSPHORUS 2.9 mg/dL (2.5-4.9)
[2019-06-24 07:35] LABS: CARBON DIOXIDE 28.5 mmol/L (21-32); POTASSIUM 5.5 mmol/L (3.5-5.1)
[2019-06-24 07:36] LABS: CREATININE 5.9 mg/dL (0.6-1.3)
[2019-06-24 08:00] VITALS: BP 150/83
[2019-06-24] MEDS: LOSARTAN 50 MG TAB PO SCH (09:00)
[2019-06-24] MEDS ORDERED: EPOETIN ALFA 10,000 UNITS/ML VIAL SUBQ SCH (09:00)
[2019-06-24] MEDS: hydrALAZINE 25 MG TAB PO SCH (09:00)
[2019-06-24] MEDS: CARVEDILOL 12.5 MG TAB PO SCH (09:00)
[2019-06-24] MEDS: BISACODYL 10 MG SUPP RC SCH ×2 (09:00→09:55)
--- NOTE | 2019-06-24 09:00 | NUR ---
PATIENT IN NO DISTRESS. WILL CONTINUE TO MONITOR THE PATIENT
[2019-06-24] MEDS: VIT-B COMP/VIT-C/FOLIC ACID 1 TAB PO SCH (09:54)
[2019-06-24] MEDS: MAGNESIUM OXIDE 400 MG TAB PO SCH (09:54)
[2019-06-24] MEDS: ASPIRIN 81 MG TAB.CHEW PO SCH (09:54)
[2019-06-24] MEDS: DOCUSATE SODIUM 100 MG GELCAP PO SCH (09:54)
[2019-06-24] MEDS: PATIROMER CALCIUM SORBITEX 8.4 GM PKT PO SCH ×2 (09:55→10:00)
[2019-06-24] MEDS: SEVELAMER CARBONATE 800 MG TAB PO SCH ×3 (10:13→17:27)
--- NOTE | 2019-06-24 10:16 | NUR ---
ADMINISTERED MEDS. PATIENT TOLERATED WELL. DID NOT GIVE B/P MEDS IN CASE DIALYSIS IS DONE TODAY, THERE IS A HD ORDER. WILL CONTINUE TO MONITOR THE PATIENT.
--- NOTE | 2019-06-24 11:34 | NUR ---
PATIENT REFUSING HD TODAY. DR WRIGHT IS AWARE THAT THE PATIENT REFUSED VELTASSA AND DULCOLAX. SHE ALSO REFUSED BLOOD SUGAR CHECK. WILL CONTINUE TO MONITOR. DR BUSTAMANTE SPEAKING WITH HER FAMILY TO SPEAK TO PATIENT AND HELP WITH MEDICAL TREATMENT
[2019-06-24] MEDS ORDERED: MUPI2CRE22 NS (12:22)
[2019-06-24] MEDS ORDERED: CHLO118S2 TP (12:22)
[2019-06-24] MEDS ORDERED: HYDR-4420 PO (12:22)
[2019-06-24] MEDS: GAUZE TP SCH (13:00)
--- NOTE | 2019-06-24 13:11 | NUR ---
PATIENT IN NO DISTRESS. WILL CONTINUE TO MONITOR
--- NOTE | 2019-06-24 14:31 | NUR ---
PATIENT IS SLEEPING. WILL CONTINUE TO MONITOR
--- NOTE | 2019-06-24 14:56 | NUR ---
[place] [facility] [place] RO[place] [address] TEAGUE. STORE HOST WILL BE AT 1900 BY [facility]. CHARGE NURSE MADE AWARE.
--- NOTE | 2019-06-24 15:28 | NUR ---
GAVE TELEPHONE CONSENT TO PERCUSSION INSTRUCTOR ANJEL AT [facility] [place]. ANSWERED ALL QUESTIONS AT THIS TIME. GAVE CALL BACK NUMBER. WILL CALL HER BACK TO LET HER KNOW WHAT TIME THE SCHEDULED DIALYSIS IS TOMORROW.
--- NOTE | 2019-06-24 15:30 | NUR ---
CALLED PATIENTS . TOLD HIM THAT THE PATIENT WILL BE TRANSFERRED TO [facility] [place] AND DIALYSIS IS SCHEDULED FOR TOMORROW. HE SAID OK
[2019-06-24] MEDS ORDERED: CALCIUM GLUCONATE 10% 1,000 MG in NACL 0.9% 50 ML IV SCH (15:40)
[2019-06-24 16:00] VITALS: BP 156/96
--- NOTE | 2019-06-24 16:49 | NUR ---
PATIENT IS REFUSING CALCIUM GLUCONATE. DR WRIGHT AT BEDSIDE TO EXPLAIN TO THE PATIENT THE RISKS OF REFUSING MEDICATIONS. DR WRIGHT USING Chargeback AT THIS TIME.
--- NOTE | 2019-06-24 17:46 | NUR ---
DR GALLEGO EXPLAINED THE RISKS OF REFUSING MEDS. PATIENT AGREES TO TAKE MEDS. ADMINISTERED MEDS. PATIENT TOLERATED WELL. NO SIGNS OF DISTRESS. EDUCATED ON SIDE EFFECTS. WILL CONTINUE TO MONITOR THE PATIENT
--- NOTE | 2019-06-24 19:40 | NUR ---
EDUCATED PATIENT ON DISEASE PROCESS, ABN S/SX, WHEN TO GO TO THE ER, EDUCATED ON MEDS, EDUCATED ON DIALYSIS TOMORROW AND TO FOLLOW UP W DR LOUIS. WOUND PHOTOS TAKEN. PER [facility] PATIENTS FAMILY DONT WANT VACCINES. IV REMOVED, TIP INTACT. PATIENT PICKED UP BY [facility] AND [place] [facility] [place] PATIENT LEFT IN STABLE CONDITION
== END 2019-06-24 19:40 | DRG 371 ==
LOC: MED 12:43 → MTU 16:33
PROVIDERS: ADMIT General Practice; ATTEND General Practice
PROC: 5A1D70Z Performance of Urinary Filtration, Intermittent, Less than 6 Hours Per Day (ICD-10-PCS; principal; 2019-06-21)
PROC: 5A1D70Z Performance of Urinary Filtration, Intermittent, Less than 6 Hours Per Day (ICD-10-PCS; 2019-06-24)
DX: K65.9 Peritonitis, unspecified (principal); L89.623 Pressure ulcer of left heel, stage 3; N17.0 Acute kidney failure with tubular necrosis; N18.6 End stage renal disease; I50.43 Acute on chronic combined systolic (congestive) and diastolic (congestive) heart failure; D68.59 Other primary thrombophilia; I13.2 Hypertensive heart and chronic kidney disease with heart failure and with stage 5 chronic kidney disease, or end stage renal disease; I69.351 Hemiplegia and hemiparesis following cerebral infarction affecting right dominant side; N39.0 Urinary tract infection, site not specified; E87.5 Hyperkalemia; E78.5 Hyperlipidemia, unspecified; E11.40 Type 2 diabetes mellitus with diabetic neuropathy, unspecified; R59.0 Localized enlarged lymph nodes; D63.1 Anemia in chronic kidney disease; E11.51 Type 2 diabetes mellitus with diabetic peripheral angiopathy without gangrene; E11.22 Type 2 diabetes mellitus with diabetic chronic kidney disease; K59.00 Constipation, unspecified; E83.39 Other disorders of phosphorus metabolism; K21.9 Gastro-esophageal reflux disease without esophagitis; Z99.2 Dependence on renal dialysis; Z88.0 Allergy status to penicillin; Z88.8 Allergy status to other drugs, medicaments and biological substances; Z79.82 Long term (current) use of aspirin; Z79.899 Other long term (current) drug therapy; Z89.412 Acquired absence of left great toe
CPT/HCPCS: 36415; 71045; 73590; 73610; 73630; 80048; 80053; 81001; 82948; 83036; 83605; 83735; 83880; 84100; 84436; 84443; 84484; 85025; 85610; 85730; 87040; 87070; 87081; 87086; 93005; 93925; 99285; C1758; J0610; J0885; J1644; J1815; J2405; J3490; J7030; Q0092

== ENCOUNTER 2019-07-06 10:16 | Inpatient (IN) | payer OTHER ==
[~2019-07-06] VITALS: Ht 167.6 cm; Wt 77.1 kg
[~2019-07-06 10:16] MED LIST: ASPI-1718 PO; ATOR40TA PO; BISA-213 RC; CARV12.5 PO; CHLO118S2 TP; DOCU-300 PO; GABA100C PO; HEPA500056; HYDR-4420 PO; INSU10SU2 SC; LACT10SO1 PO; LOSA100T51 PO; MUPI2CRE22 NS; SEVE800T6 PO; SLIDE SUBQ; VITA1TAB44 PO; [UNRECOGNIZED DRUG - CODE] PO
[2019-07-06 10:17] VITALS: BP 193/68
[2019-07-06] MEDS ORDERED: ONDANSETRON 4 MG/2 ML VIAL IVP ONE (10:20)
[2019-07-06] MEDS ORDERED: PANTOPRAZOLE 40 MG INJ VIAL IVP ONE (10:20)
[2019-07-06 11:29] LABS: ANION GAP 9.4 (8-16); CARBON DIOXIDE 32.6 mmol/L (21-32)
[2019-07-06 11:45] LABS: ALBUMIN 2.6 g/dL (3.4-5.0); CREATININE 3.1 mg/dL (0.6-1.3); TOTAL BILIRUBIN 1.4 mg/dL (0.0-1.0)
[2019-07-06 11:57] LABS: BILIRUBIN,URINE NEGATIVE (NEGATIVE); BLOOD, URINE TRACE-L (NEGATIVE); COLOR,URINE YELLOW (YELLOW); LEUKOCYTE ESTERASE ,URINE TRACE (NEGATIVE); NITRITE, URINE NEGATIVE (NEGATIVE); PH,URINE 8.5 (5.0-9.0); UGLUCOSE TRACE (NEGATIVE)
[2019-07-06 12:03] LABS: APPEARANCE,URINE SLIGHTLY HAZY (CLEAR)
[2019-07-06 12:07] LABS: RBC,URINE 0-5 /HPF (0-5)
[2019-07-06 12:08] LABS: URINE AMORPHOUS URATE 1+ /HPF (None Seen)
[2019-07-06] MEDS ORDERED: cloNIDine 0.1 MG TAB PO ONE (12:10)
[2019-07-06 12:22] LABS: HEMATOCRIT 27.8 % (36-48); HEMOGLOBIN 8.5 g/dL (12.0-16.0); MEAN CORPUSCULAR HEMOGLOBIN 24 pg (27-31); MEAN CORPUSCULAR HGB CONC 31 g/dL (33-37); MEAN CORPUSCULAR VOLUME 77.2 fL (80-94); RED CELL DISTRIBUTION WIDTH 18.6 % (11.6-13.7); WHITE BLOOD COUNT (AUTO) 16.8 K/uL (4.8-10.8)
[2019-07-06 12:23] LABS: BASOPHILS # (AUTO) 0.1 K/uL (0.00-0.22); BASOPHILS % (AUTO) 0.4 % (0.0-2.0); EOSINOPHILS % (AUTO) 0.1 % (0.0-4.0); LYMPHOCYTES # (AUTO) 1.7 K/uL (2.5-16.5); MONOCYTES # (AUTO) 1.5 K/uL (0.8-1.0); MONOCYTES % (AUTO) 8.9 % (1.7-9.3); NEUTROPHILS # (AUTO) 13.5 K/uL (1.8-7.7); PLATELET COUNT (AUTO) 378 K/uL (140-450)
[2019-07-06 12:24] LABS: LYMPHOCYTES % (AUTO) 10.3 % (20.5-51.1); NEUTROPHILS % (AUTO) 80.3 % (42.2-75.2)
[2019-07-06] MEDS ORDERED: LEVOFLOXACIN 500 MG/D5W PREMIX 100 ML IV ONE (12:30)
[2019-07-06] MEDS ORDERED: NACL 0.9% 1,000 ML IV SCH (12:54)
[2019-07-06] MEDS ORDERED: HYDROcodone/APAP 5/325 MG 1 TAB TAB PO PRN (12:55)
[2019-07-06] MEDS ORDERED: LORazepam 2 MG/ML VIAL IM/IVP PRN (12:55)
[2019-07-06] MEDS ORDERED: MORPHINE SULFATE 2 MG/ML SYR IVP PRN (12:55)
[2019-07-06] MEDS ORDERED: CARVEDILOL 12.5 MG TAB PO SCH (13:14)
[2019-07-06] MEDS ORDERED: hydrALAZINE 20 MG/ML VIAL IVP STA ×2 (13:19→13:33)
[2019-07-06] MEDS ORDERED: LABETALOL 20 MG/4 ML VIAL IVP SCH (13:19)
[2019-07-06 13:54] LABS: MAGNESIUM 1.9 mg/dL (1.8-2.4); THYROID STIMULATING HORMONE 6.22 uIU/mL (0.34-3.74)
[2019-07-06 14:05] VITALS: BP 163/65
[2019-07-06 14:17] LABS: BARBITURATE, URINE NEG. ng/ml (NEG <=200); BENZODIAZEPINE, URINE NEG. ng/mL (NEG <=200); CANNABINOID, URINE NEG. ng/mL (NEG <=50); COCAINE, URINE NEG. ng/mL (NEG <=300); OPIATE, URINE NEG. ng/mL (NEG <=2000); PHENCYCLIDINE SCREEN,URINE NEG. ng/mL (NEG <=25)
[2019-07-06] MEDS: SEVELAMER CARBONATE 800 MG TAB PO SCH (18:47)
[2019-07-06] MEDS ORDERED: PANTOPRAZOLE 40 MG INJ VIAL IVP SCH (19:00)
[2019-07-06] MEDS ORDERED: IRON SUCROSE COMPLEX 100 MG/5 ML VIAL IVP SCH (19:00)
[2019-07-06 20:00] VITALS: BP 182/38
[2019-07-06] MEDS ORDERED: DEXTROSE 50% 50 ML SYR IVP PRN (20:45)
[2019-07-06] MEDS: GABAPENTIN 100 MG CAP PO SCH ×2 (20:52→21:00)
[2019-07-06] MEDS: CARVEDILOL 12.5 MG TAB PO SCH ×2 (20:52→21:00)
[2019-07-06] MEDS ORDERED: NON-FORMULARY ITEM (Bisacodyl (Dulcolax) 10 MG) RC SCH (21:00)
[2019-07-06] MEDS ORDERED: DOCUSATE SODIUM PO SCH (21:00)
[2019-07-06] MEDS ORDERED: NON-FORMULARY ITEM (Lactulose 20 GM) PO SCH (21:00)
[2019-07-06] MEDS: BLOOD GLUCOSE MONITORING 1 DEV DEV FS SCH (21:14)
[2019-07-06] MEDS: hydrALAZINE 20 MG/ML VIAL IVP PRN (21:20)
[2019-07-06] MEDS ORDERED: SODIUM PHOS / POTASSIUM PHOS 1 PKT PDR PO SCH (21:30)
[2019-07-07] VITALS: BP 149/47
[2019-07-07] MEDS: LORazepam 2 MG/ML VIAL IM/IVP PRN (02:18)
[2019-07-07] MEDS ORDERED: LORazepam 2 MG/ML VIAL ONE (02:27)
[2019-07-07 04:00] VITALS: BP 157/42
[2019-07-07] MEDS: BLOOD GLUCOSE MONITORING 1 DEV DEV FS SCH ×4 (05:38→21:14)
[2019-07-07 08:00] VITALS: BP 198/58
[2019-07-07 08:29] LABS: BASOPHILS # (AUTO) 0.1 K/uL (0.00-0.22); BASOPHILS % (AUTO) 0.4 % (0.0-2.0); EOSINOPHILS % (AUTO) 0.3 % (0.0-4.0); HEMATOCRIT 23.7 % (36-48); HEMOGLOBIN 7.3 g/dL (12.0-16.0); LYMPHOCYTES # (AUTO) 1.8 K/uL (2.5-16.5); MEAN CORPUSCULAR HEMOGLOBIN 24 pg (27-31); MEAN CORPUSCULAR HGB CONC 31 g/dL (33-37); MONOCYTES % (AUTO) 7.1 % (1.7-9.3); NEUTROPHILS # (AUTO) 10.7 K/uL (1.8-7.7); NEUTROPHILS % (AUTO) 79.2 % (42.2-75.2); PLATELET COUNT (AUTO) 300 K/uL (140-450); RED BLOOD CELL COUNT(AUTO) 3.07 MIL/uL (4.20-5.40); RED CELL DISTRIBUTION WIDTH 18.8 % (11.6-13.7); WHITE BLOOD COUNT (AUTO) 13.5 K/uL (4.8-10.8)
[2019-07-07 08:49] LABS: ANION GAP 12.1 (8-16); CARBON DIOXIDE 31.6 mmol/L (21-32); POTASSIUM 4.7 mmol/L (3.5-5.1)
[2019-07-07 08:51] LABS: CREATININE 4.2 mg/dL (0.6-1.3)
[2019-07-07] MEDS ORDERED: NON-FORMULARY ITEM (Losartan Potassium 1 TAB) PO SCH (09:00)
[2019-07-07] MEDS: CARVEDILOL 12.5 MG TAB PO SCH ×2 (09:00→21:10)
[2019-07-07] MEDS: PANTOPRAZOLE 40 MG INJ VIAL IVP SCH ×2 (09:58→21:10)
[2019-07-07] MEDS: LOSARTAN 25 MG TAB PO SCH (09:59)
[2019-07-07] MEDS: SEVELAMER CARBONATE 800 MG TAB PO SCH ×3 (09:59→16:12)
[2019-07-07] MEDS: FERROUS SULFATE 325 MG TABEC PO SCH ×2 (09:59→16:12)
[2019-07-07] MEDS: VIT-B COMP/VIT-C/FOLIC ACID 1 TAB PO SCH (10:00)
[2019-07-07 10:54] LABS: PHOSPHORUS 3.7 mg/dL (2.5-4.9)
[2019-07-07 12:00] VITALS: BP 155/46
[2019-07-07 15:58] VITALS: BP 121/46
[2019-07-07] MEDS ORDERED: MORPHINE SULFATE 2 MG/ML SYR IVP SCH (16:00)
[2019-07-07 17:53] LABS: CHOL/HDL RATIO 2.6 (1-4.5)
[2019-07-07 20:00] VITALS: BP 150/55
[2019-07-07] MEDS: GABAPENTIN 100 MG CAP PO SCH (21:10)
[2019-07-07] MEDS: INSULIN LISPRO SLIDING SCALE 100 UNITS/ML VIAL SUBQ PRN (21:13)
[2019-07-08] VITALS: BP 157/50
[2019-07-08 04:00] VITALS: BP 155/56
[2019-07-08] MEDS: BLOOD GLUCOSE MONITORING 1 DEV DEV FS SCH ×4 (06:27→21:22)
[2019-07-08 07:19] LABS: ANION GAP 12.9 (8-16); CARBON DIOXIDE 31.2 mmol/L (21-32); CREATININE 3.5 mg/dL (0.6-1.3); POTASSIUM 4.1 mmol/L (3.5-5.1)
[2019-07-08 07:23] LABS: MAGNESIUM 1.7 mg/dL (1.8-2.4); PHOSPHORUS 2.9 mg/dL (2.5-4.9)
[2019-07-08 08:00] VITALS: BP 165/64
[2019-07-08] MEDS: SEVELAMER CARBONATE 800 MG TAB PO SCH ×4 (08:44→17:49)
[2019-07-08] MEDS: VIT-B COMP/VIT-C/FOLIC ACID 1 TAB PO SCH (08:45)
[2019-07-08] MEDS: CARVEDILOL 12.5 MG TAB PO SCH (08:45)
[2019-07-08] MEDS: LOSARTAN 25 MG TAB PO SCH (08:45)
[2019-07-08] MEDS: FERROUS SULFATE 325 MG TABEC PO SCH ×2 (08:46→17:49)
[2019-07-08] MEDS: PANTOPRAZOLE 40 MG INJ VIAL IVP SCH ×2 (08:47→20:23)
[2019-07-08 09:02] LABS: BASOPHILS % (AUTO) 0.4 % (0.0-2.0); EOSINOPHILS # (AUTO) 0.1 K/uL (0-0.4); EOSINOPHILS % (AUTO) 0.7 % (0.0-4.0); HEMATOCRIT 26.1 % (36-48); LYMPHOCYTES # (AUTO) 1.8 K/uL (2.5-16.5); LYMPHOCYTES % (AUTO) 13.1 % (20.5-51.1); MEAN CORPUSCULAR HEMOGLOBIN 24 pg (27-31); MEAN CORPUSCULAR HGB CONC 31 g/dL (33-37); MEAN CORPUSCULAR VOLUME 77.5 fL (80-94); MONOCYTES % (AUTO) 7.7 % (1.7-9.3); NEUTROPHILS # (AUTO) 10.7 K/uL (1.8-7.7); NEUTROPHILS % (AUTO) 78.1 % (42.2-75.2); PLATELET COUNT (AUTO) 325 K/uL (140-450); RED BLOOD CELL COUNT(AUTO) 3.37 MIL/uL (4.20-5.40); RED CELL DISTRIBUTION WIDTH 19.1 % (11.6-13.7); WHITE BLOOD COUNT (AUTO) 13.6 K/uL (4.8-10.8)
[2019-07-08 12:00] VITALS: BP 187/53
[2019-07-08] MEDS ORDERED: MAGNESIUM OXIDE 400 MG TAB PO SCH (14:06)
[2019-07-08] MEDS: LEVOFLOXACIN 250 MG/D5 PREMIX 50 ML IV SCH (14:16)
[2019-07-08] MEDS: LORazepam 2 MG/ML VIAL IM/IVP PRN (14:22)
[2019-07-08 16:00] VITALS: BP 177/60
[2019-07-08] MEDS: INSULIN LISPRO SLIDING SCALE 100 UNITS/ML VIAL SUBQ PRN ×2 (17:54→20:33)
[2019-07-08 20:00] VITALS: BP 190/55
[2019-07-08] MEDS: cloNIDine 0.1 MG TAB PO SCH (20:23)
[2019-07-08] MEDS: GABAPENTIN 100 MG CAP PO SCH (20:23)
[2019-07-08] MEDS ORDERED: CARVEDILOL 12.5 MG TAB PO SCH (21:00)
[2019-07-08] MEDS ORDERED: hydrALAZINE 20 MG/ML VIAL IVP SCH (22:40)
[2019-07-09] VITALS: BP 121/43
[2019-07-09] MEDS: cloNIDine 0.1 MG TAB PO SCH ×3 (05:02→21:05)
[2019-07-09] MEDS: BLOOD GLUCOSE MONITORING 1 DEV DEV FS SCH ×4 (05:32→20:58)
[2019-07-09] MEDS: hydrALAZINE 20 MG/ML VIAL IVP PRN (06:40)
[2019-07-09 06:50] LABS: BASOPHILS % (AUTO) 0.4 % (0.0-2.0); EOSINOPHILS # (AUTO) 0.2 K/uL (0-0.4); EOSINOPHILS % (AUTO) 1.7 % (0.0-4.0); HEMATOCRIT 24.1 % (36-48); HEMOGLOBIN 7.5 g/dL (12.0-16.0); LYMPHOCYTES # (AUTO) 1.5 K/uL (2.5-16.5); LYMPHOCYTES % (AUTO) 14.4 % (20.5-51.1); MEAN CORPUSCULAR HEMOGLOBIN 24 pg (27-31); MEAN CORPUSCULAR HGB CONC 31 g/dL (33-37); MEAN CORPUSCULAR VOLUME 76.9 fL (80-94); MONOCYTES # (AUTO) 0.9 K/uL (0.8-1.0); MONOCYTES % (AUTO) 9.1 % (1.7-9.3); NEUTROPHILS # (AUTO) 7.6 K/uL (1.8-7.7); NEUTROPHILS % (AUTO) 74.4 % (42.2-75.2); PLATELET COUNT (AUTO) 309 K/uL (140-450); RED BLOOD CELL COUNT(AUTO) 3.13 MIL/uL (4.20-5.40); RED CELL DISTRIBUTION WIDTH 18.5 % (11.6-13.7); WHITE BLOOD COUNT (AUTO) 10.3 K/uL (4.8-10.8)
[2019-07-09] MEDS ORDERED: fentaNYL 0.05 MG/ML VIAL ONE (07:20)
[2019-07-09] MEDS ORDERED: MIDAZOLAM 2 MG/2 ML VIAL ONE ×2 (07:20)
[2019-07-09] MEDS ORDERED: diphenhydrAMINE 50 MG/ML VIAL ONE (07:20)
[2019-07-09 08:18] LABS: MAGNESIUM 1.8 mg/dL (1.8-2.4); PHOSPHORUS 3.2 mg/dL (2.5-4.9)
[2019-07-09 08:21] LABS: ANION GAP 12.6 (8-16); POTASSIUM 4.6 mmol/L (3.5-5.1)
[2019-07-09] MEDS ORDERED: MIDAZOLAM 2 MG/2 ML VIAL IVP ONE (08:35)
[2019-07-09] MEDS ORDERED: fentaNYL 0.05 MG/ML VIAL IVP ONE (08:35)
[2019-07-09 08:45] VITALS: BP 168/53
[2019-07-09] MEDS: LOSARTAN 25 MG TAB PO SCH (09:00)
[2019-07-09 09:11] LABS: CREATININE 4.7 mg/dL (0.6-1.3)
[2019-07-09] MEDS: VIT-B COMP/VIT-C/FOLIC ACID 1 TAB PO SCH (10:54)
[2019-07-09] MEDS: PANTOPRAZOLE 40 MG INJ VIAL IVP SCH ×2 (10:54→21:03)
[2019-07-09] MEDS: ASCORBIC ACID 500 MG TAB PO SCH (10:54)
[2019-07-09] MEDS: FERROUS SULFATE 325 MG TABEC PO SCH ×2 (10:54→17:00)
[2019-07-09] MEDS: SEVELAMER CARBONATE 800 MG TAB PO SCH ×3 (10:54→17:00)
[2019-07-09] MEDS: GAUZE TP SCH (13:24)
[2019-07-09 16:05] VITALS: BP 141/53
[2019-07-09] MEDS: INSULIN LISPRO SLIDING SCALE 100 UNITS/ML VIAL SUBQ PRN ×2 (18:10→21:00)
[2019-07-09] MEDS: LORazepam 2 MG/ML VIAL IM/IVP PRN (18:12)
[2019-07-09] MEDS ORDERED: LORazepam 2 MG/ML VIAL IM/IVP SCH (18:18)
[2019-07-09] MEDS: CARVEDILOL 6.25 MG TAB PO SCH (21:03)
[2019-07-09] MEDS: GABAPENTIN 100 MG CAP PO SCH (21:04)
[2019-07-10] VITALS: BP 143/63
[2019-07-10] MEDS: cloNIDine 0.1 MG TAB PO SCH ×3 (05:20→14:53)
[2019-07-10] MEDS: BLOOD GLUCOSE MONITORING 1 DEV DEV FS SCH ×3 (05:57→16:46)
[2019-07-10] MEDS: INSULIN LISPRO SLIDING SCALE 100 UNITS/ML VIAL SUBQ PRN ×3 (05:59→16:48)
[2019-07-10] MEDS: SEVELAMER CARBONATE 800 MG TAB PO SCH ×3 (07:59→17:11)
[2019-07-10] MEDS: FERROUS SULFATE 325 MG TABEC PO SCH ×2 (07:59→17:11)
[2019-07-10 08:00] VITALS: BP 152/63
[2019-07-10] MEDS: LOSARTAN 25 MG TAB PO SCH (09:00)
[2019-07-10] MEDS: CARVEDILOL 6.25 MG TAB PO SCH (09:00)
[2019-07-10] MEDS ORDERED: LEVO500T2 PO (09:10)
[2019-07-10] MEDS: PANTOPRAZOLE 40 MG INJ VIAL IVP SCH (09:31)
[2019-07-10] MEDS: VIT-B COMP/VIT-C/FOLIC ACID 1 TAB PO SCH (09:32)
[2019-07-10] MEDS: ASCORBIC ACID 500 MG TAB PO SCH (09:32)
[2019-07-10] MEDS: LEVOFLOXACIN 250 MG/D5 PREMIX 50 ML IV SCH (12:13)
[2019-07-10] MEDS: GAUZE TP SCH (13:23)
[2019-07-10 16:00] VITALS: BP 155/60
[2019-07-10 16:23] VITALS: BP 154/59
== END 2019-07-10 18:50 | DRG 871 ==
LOC: MED 10:16 → MTU 13:00
PROVIDERS: ADMIT General Practice; ATTEND General Practice
PROC: 5A1D70Z Performance of Urinary Filtration, Intermittent, Less than 6 Hours Per Day (ICD-10-PCS; 2019-07-07)
PROC: 0DJ08ZZ Inspection of Upper Intestinal Tract, Via Natural or Artificial Opening Endoscopic (ICD-10-PCS; principal; 2019-07-09 08:00)
PROC: 5A1D70Z Performance of Urinary Filtration, Intermittent, Less than 6 Hours Per Day (ICD-10-PCS; 2019-07-10)
DX: A41.9 Sepsis, unspecified organism (principal); L89.623 Pressure ulcer of left heel, stage 3; N18.6 End stage renal disease; N17.0 Acute kidney failure with tubular necrosis; I50.43 Acute on chronic combined systolic (congestive) and diastolic (congestive) heart failure; K22.6 Gastro-esophageal laceration-hemorrhage syndrome; I13.2 Hypertensive heart and chronic kidney disease with heart failure and with stage 5 chronic kidney disease, or end stage renal disease; L97.429 Non-pressure chronic ulcer of left heel and midfoot with unspecified severity; N39.0 Urinary tract infection, site not specified; N12 Tubulo-interstitial nephritis, not specified as acute or chronic; K81.9 Cholecystitis, unspecified; D63.8 Anemia in other chronic diseases classified elsewhere; E11.22 Type 2 diabetes mellitus with diabetic chronic kidney disease; E11.621 Type 2 diabetes mellitus with foot ulcer; E78.5 Hyperlipidemia, unspecified; I50.9 Heart failure, unspecified; K21.0 Gastro-esophageal reflux disease with esophagitis; D64.9 Anemia, unspecified; E83.39 Other disorders of phosphorus metabolism; I16.0 Hypertensive urgency; K59.00 Constipation, unspecified; K21.9 Gastro-esophageal reflux disease without esophagitis; E11.51 Type 2 diabetes mellitus with diabetic peripheral angiopathy without gangrene; E11.40 Type 2 diabetes mellitus with diabetic neuropathy, unspecified; Z88.8 Allergy status to other drugs, medicaments and biological substances; Z88.0 Allergy status to penicillin
CPT/HCPCS: 36415; 71045; 73030; 73070; 73502; 73560; 74018; 76700; 78445; 80048; 80053; 80305; 81001; 82140; 82150; 82607; 82728; 82746; 82948; 83036; 83540; 83605; 83690; 83735; 83880; 84100; 84443; 84484; 85025; 85045; 85610; 85730; 87040; 87081; 87086; 87186; 92610; 93005; 93970; 96365; 96375; 99285; C1758; C9113; J0360; J0696; J1200; J1756; J1815; J1956; J2060; J2250; J2270; J2405; J3010; J3490; J7030; J7060; Q0092

== ENCOUNTER 2020-04-05 08:18 | Emergency (ER) | payer OTHER ==
[~2020-04-05] VITALS: Ht 157.5 cm; Wt 83.9 kg
[~2020-04-05 08:18] MED LIST changes: -ASPI-1718 PO; +ASPI-1822 PO; -CHLO118S2 TP; -HYDR-4420 PO; -MUPI2CRE22 NS; -SLIDE SUBQ
--- NOTE | 2020-04-05 08:20 | NUR ---
BIBA TAKEN TO BED 11
[2020-04-05 08:30] VITALS: BP 185/48
--- NOTE | 2020-04-05 08:30 | NUR ---
64 Y/O FEMALE BIBA C/O LOW BLOOD SUGAR , PT FBS UPON ARRIVAL 47. PT A/O X4 , ABLE TO FOLLOW ALL COMMANDS. PT PRESENTED LETHARGIC BUT ABLE TO COMMUNICATE. PT STATES SHE WOULD LIKE SOME FOOD TO EAT. PT PROVIDED OJ W/ SUGAR AND MEAL TRAY ORDERD. PT GHANAIAN SPEAKING W/ SOME WOLOF. PT BREATHING EVEN AND UNLABORED. PT LAYING IN BED AT LOWEST POSITION, HOB ELEVATED, SIDE RAILS X2 FOR PT SAFETY. HX: HTN, DM, ESRD RX: UNKN
--- NOTE | 2020-04-05 09:10 | NUR ---
fsbs 97 at this time. Pt A & O and eating breakfast at bedside
--- NOTE | 2020-04-05 09:45 | NUR ---
PT SITTING UP IN BED AT LOWEST POSITION EATING BREAKFAST, SIDE RAILS X1.
--- NOTE | 2020-04-05 09:54 | NUR ---
FBS 149 AT THIS TIME, ERMD MADE AWARE.
--- NOTE | 2020-04-05 10:18 | NUR ---
pt will return [place] [facility] [place] [facility]. Report given to Marlin. fsbs 131 at this time.
--- NOTE | 2020-04-05 10:20 | NUR ---
PT FBS 131. PT A/O X4 , SLEEPING IN BED , HOB ELEVATED, AROUSBLE BY VOICE. SIDE RAILS X2 FOR PT SAFETY.
[2020-04-05 10:26] VITALS: BP 185/64
--- NOTE | 2020-04-05 10:27 | NUR ---
Patient discharged with v/s stable. Written and verbal after care instructions given and explained. Patient verbalized understanding. Ambulance Transport with to care home. All questions addressed prior to discharge. Advised to follow up with PMD.
== END 2020-04-05 10:27 | disposition home or self-care (01) ==
LOC: MED 08:18
DX: E16.1 Other hypoglycemia (principal); I12.9 Hypertensive chronic kidney disease with stage 1 through stage 4 chronic kidney disease, or unspecified chronic kidney disease; N18.9 Chronic kidney disease, unspecified; Z88.0 Allergy status to penicillin; Z79.899 Other long term (current) drug therapy; Z79.84 Long term (current) use of oral hypoglycemic drugs; Z79.82 Long term (current) use of aspirin
CPT/HCPCS: 93005; 99283